=== PATIENT | male | born 1960 | race Caucasian/White ===

== ENCOUNTER 2021-04-17 19:02 | Inpatient (IN) | payer MEDICAID ==
[~2021-04-17] VITALS: Ht 167.6 cm; Wt 90.7 kg
[2021-04-17] MEDS ORDERED: ChlordiazePOXIDE HCL 25 MG CAPSULE PO PRN (21:45)
[2021-04-17] MEDS ORDERED: METO50 PO (22:48)
[2021-04-18] VITALS (16 sets, daily range): BP systolic 135–188; BP diastolic 68–125
[2021-04-18] MEDS ORDERED: PNEUMOCOCCAL VACCINE POLYVALENT 0.5 ML VIAL [PPSV23] IM. ONE (02:30)
[2021-04-18] MEDS ORDERED: ONDANSETRON HCL 4 MG TABLET PO PRN (06:30)
[2021-04-18] MEDS ORDERED: DOCUSATE SODIUM 100 MG CAPSULE PO PRN (06:30)
[2021-04-18] MEDS ORDERED: ALBUTEROL SULFATE HFA 90 MCG/PUFF 8 GM INHALER IH PRN (06:30)
[2021-04-18] MEDS ORDERED: BACITRACIN 28 GM OINTMENT TP PRN (06:30)
[2021-04-18] MEDS ORDERED: OMEPRAZOLE 20 MG CAPSULE PO PRN (06:30)
[2021-04-18] MEDS ORDERED: LOPERAMIDE HCL 2 MG CAPSULE PO PRN (06:30)
[2021-04-18] MEDS ORDERED: MAG HYDROX/AL HYDROX/SIMETH ES 30 ML SUSPENSION UDCUP PO PRN (06:30)
[2021-04-18] MEDS ORDERED: CloNIDine HCL 0.1 MG TABLET PO PRN (06:30)
[2021-04-18] MEDS ORDERED: IBUPROFEN 600 MG TABLET PO PRN (06:30)
[2021-04-18] MEDS ORDERED: PETROLATUM,WHITE 28 GM JELLY TP PRN (06:30)
[2021-04-18] MEDS ORDERED: MAGNESIUM HYDROXIDE SUSPENSION 30 ML UDCUP PO PRN (06:30)
[2021-04-18] MEDS ORDERED: BENZOCAINE/MENTHOL LOZENGE PO PRN (06:30)
[2021-04-18] MEDS ORDERED: ChlordiazePOXIDE HCL 25 MG CAPSULE PO PRN (07:00)
[2021-04-18 08:19] LABS: ALANINE AMINOTRANSFERASE 49 U/L (12-78); ALBUMIN 3.4 g/dL (3.4-5.0); ALKALINE PHOSPHATASE 46 U/L (46-116); ANION GAP 9 mmol/L (8-16); ASPARTATE AMINOTRANSFERASE 40 U/L (15-37); BILIRUBIN,TOTAL 0.8 mg/dL (0.1-1.0); CALCIUM, TOTAL 9.3 mg/dL (8.8-10.5); CARBON DIOXIDE 27 mmol/L (22-29); CHLORIDE 100 mmol/L (98-107); CHOL/HDL RATIO 2.1 (4.2-7.3); CHOLESTEROL 246 mg/dL (131-200); CREATININE 0.89 mg/dL (0.60-1.30); FREE T4 (FREE THYROXINE) 1.07 ng/dL (0.76-1.46); GLOMERULAR FILTR. RATE CALC > 60 mL/min (>60); GLUCOSE,RANDOM 93 mg/dL (70-110); HDL CHOLESTEROL 115 mg/dL (40-60); LDL CHOL (CALC.) 117 mg/dL (0-130); SODIUM SERUM 136 mmol/L (136-145); THYROID STIMULATING HORMONE 4.72 uIU/mL (0.36-3.74); TOTAL PROTEIN, SERUM 7.6 g/dL (6.4-8.2); TRIGLYCERIDES 69 mg/dL (15-150); UREA NITROGEN, BLOOD 11 mg/dL (7-18)
[2021-04-18] MEDS: METOPROLOL TARTRATE 50 MG TABLET PO SCH ×2 (09:00→16:42)
[2021-04-18] MEDS: ChlordiazePOXIDE HCL 25 MG CAPSULE PO SCH ×4 (10:15→20:35)
[2021-04-18] MEDS ORDERED: POTASSIUM CHLORIDE 20 MEQ ER TABLET PO ONE (20:30)
[2021-04-19] VITALS: BP 128/78
[2021-04-19 00:24] VITALS: BP 140/74
[2021-04-19 04:29] VITALS: BP 125/75
[2021-04-19 07:24] LABS: BASOPHILS % (AUTO) 0.8 % (0.0-2.0); EOSINOPHILS % (AUTO) 4.9 % (1.0-6.0); HEMATOCRIT 36.8 % (41-53); LYMPHOCYTES # (AUTO) 1.4 K/uL (1.0-4.8); LYMPHOCYTES % (AUTO) 19.3 % (22.0-44.0); MEAN CORPUSCULAR HEMOGLOBIN 28.4 pg (26.0-34.0); MEAN CORPUSCULAR HGB CONC 32.6 G/dL (31.0-37.0); MEAN CORPUSCULAR VOLUME 87 fL (80-100); MONOCYTES # (AUTO) 1.5 K/uL (0.1-1.0); MONOCYTES % (AUTO) 20.3 % (2.0-9.0); NEUTROPHILS # (AUTO) 4.1 K/uL (1.8-7.7); NEUTROPHILS % (AUTO) 54.7 % (40.0-70.0); RED BLOOD CELL COUNT(AUTO) 4.23 MIL/uL (4.50-5.90); RED CELL DISTRIBUTION WIDTH 17.5 % (11.5-14.5)
[2021-04-19] MEDS: ChlordiazePOXIDE HCL 25 MG CAPSULE PO SCH ×4 (09:29→20:44)
[2021-04-19] MEDS: METOPROLOL TARTRATE 50 MG TABLET PO SCH ×2 (09:29→16:40)
[2021-04-19 10:23] LABS: PLATELET COUNT (AUTO) 180 K/uL (150-450)
[2021-04-19 12:49] VITALS: BP 138/93
[2021-04-19 16:11] VITALS: BP 139/82
[2021-04-19] MEDS: MUPIROCIN CALCIUM 2% 22 GM OINTMENT NASAL SCH (16:41)
[2021-04-19 20:30] VITALS: BP 116/72
[2021-04-19] MEDS: ACETAMINOPHEN 325 MG TABLET PO PRN (21:11)
[2021-04-20 02:11] VITALS: BP 119/71
[2021-04-20] MEDS ORDERED: ChlordiazePOXIDE HCL 10 MG CAPSULE PO PRN (07:00)
[2021-04-20] MEDS: MUPIROCIN CALCIUM 2% 22 GM OINTMENT NASAL SCH ×2 (08:16→16:47)
[2021-04-20] MEDS: ChlordiazePOXIDE HCL 10 MG CAPSULE PO SCH ×4 (08:16→20:48)
[2021-04-20] MEDS: METOPROLOL TARTRATE 50 MG TABLET PO SCH ×2 (08:16→16:22)
[2021-04-20 08:57] VITALS: BP 143/74
[2021-04-20 16:11] VITALS: BP 136/72
[2021-04-21 00:18] VITALS: BP 134/70
[2021-04-21] MEDS ORDERED: ChlordiazePOXIDE HCL 10 MG CAPSULE PO PRN (07:00)
[2021-04-21 08:14] VITALS: BP 146/93
[2021-04-21] MEDS: METOPROLOL TARTRATE 50 MG TABLET PO SCH ×2 (08:35→16:51)
[2021-04-21] MEDS: MUPIROCIN CALCIUM 2% 22 GM OINTMENT NASAL SCH ×2 (08:35→16:52)
[2021-04-21 16:22] VITALS: BP 136/77
[2021-04-21] MEDS: ACETAMINOPHEN 325 MG TABLET PO PRN (19:57)
[2021-04-22 05:25] VITALS: BP 141/91
[2021-04-22 08:17] VITALS: BP 143/84
[2021-04-22] MEDS: METOPROLOL TARTRATE 50 MG TABLET PO SCH ×2 (08:44→16:38)
[2021-04-22] MEDS: MUPIROCIN CALCIUM 2% 22 GM OINTMENT NASAL SCH ×2 (08:45→16:38)
[2021-04-22 16:09] VITALS: BP 140/82
[2021-04-23 05:30] VITALS: BP 138/82
[2021-04-23] MEDS: MUPIROCIN CALCIUM 2% 22 GM OINTMENT NASAL SCH (08:26)
[2021-04-23] MEDS: METOPROLOL TARTRATE 50 MG TABLET PO SCH (08:26)
[2021-04-23 08:28] VITALS: BP 132/64
== END 2021-04-23 11:35 | disposition home or self-care (01) | DRG 754 ==
LOC: B2S 21:57
PROVIDERS: ADMIT Psychiatry & Neurology Psychiatry; ATTEND Psychiatry & Neurology Psychiatry
DX: F32.9 Major depressive disorder, single episode, unspecified (principal); G62.9 Polyneuropathy, unspecified; F10.129 Alcohol abuse with intoxication, unspecified; F23 Brief psychotic disorder; I10 Essential (primary) hypertension; E87.6 Hypokalemia; K59.00 Constipation, unspecified; F41.9 Anxiety disorder, unspecified; G47.00 Insomnia, unspecified; K21.9 Gastro-esophageal reflux disease without esophagitis; Z28.21 Immunization not carried out because of patient refusal; Z22.322 Carrier or suspected carrier of Methicillin resistant Staphylococcus aureus
CPT/HCPCS: 80053; 80061; 84132; 84439; 84443; 85025; 87081; G0480